=== PATIENT | female | born 1995 | race Caucasian/White ===

== ENCOUNTER 2016-08-26 17:21 | Emergency (ER) | payer SELFPAY ==
--- NOTE | 2016-08-26 17:29 | ER Document Report ---
ED Medical Screen (RME) - General Stated Complaint: SINUS CONGESTION Mode of Arrival: Ambulatory Information source: Patient Notes: c/o sinus congestion, pain and pressure with green rhinorrhea, headache and chest congestion with cough (green mucus) for the past week. Denies fever, chills, nausea, vomiting, or diarrhea. She has tried allergy medication, OTC decongestants which has not helped. Endorses sick contacts. I have greeted and performed a rapid initial assessment of this patient. A comprehensive ED assessment and evaluation of the patient, analysis of test results and completion of the medical decision making process will be conducted by additional ED providers. TRAVEL OUTSIDE OF THE [place] IN LAST 30 DAYS: No - Related Data Allergies/Adverse Reactions: amoxicillin [Amoxicillin] Allergy (Severe, Verified 08/26/16 17:28) Swelling, Hives Past Medical History - Past Medical History Cardiac Medical History: Denies: Hx Coronary Artery Disease, Hx Heart Attack, Hx Hypertension Pulmonary Medical History: Denies: Hx Asthma, Hx Bronchitis, Hx COPD, Hx Pneumonia Neurological Medical History: Denies: Hx Cerebrovascular Accident, Hx Seizures GI Medical History: Musculoskeltal Medical History: Denies Hx Arthritis, Reports Hx Musculoskeletal Trauma Infectious Medical History: Past Surgical History: Reports: Hx Cholecystectomy, Hx Hysterectomy. Denies: Hx Pacemaker - Immunizations Hx Diphtheria, Pertussis, Tetanus Vaccination: No - unsure Physical Exam - Vital signs Vitals: Temp Pulse Resp BP Pulse Ox 98.1 F 88 16 141/91 H 100 08/26/16 17:28 08/26/16 17:28 08/26/16 17:28 08/26/16 17:28 08/26/16 17:28 Course - Vital Signs Vital signs: Temp Pulse Resp BP Pulse Ox 98.1 F 88 16 141/91 H 100 08/26/16 17:28 08/26/16 17:28 08/26/16 17:28 08/26/16 17:28 08/26/16 17:28
--- NOTE | 2016-08-26 18:42 | ER Document Report ---
HPI - HPI Patient complains to provider of: sinus drainage and pressure Onset: Other - 1 week Onset/Duration: Gradual Pain Level: Denies Context: 21-year-old female with upper respiratory infection for over a week with sinus pressure and congestion. Dark green nasal discharge when she blows her nose especially at night. She has post nasal drip with occasional cough. She is a smoker. No fever. Associated Symptoms: None Exacerbated by: Denies Relieved by: Denies Similar symptoms previously: No Recently seen / treated by doctor: No - ROS ROS below otherwise negative: Yes Systems Reviewed and Negative: Yes All other systems reviewed and negative - REPRODUCTIVE LMP: 08/18/16 Reproductive: DENIES: : - DERM Skin Color: Normal Past Medical History - General Information source: Patient - Social History Smoking Status: Current Every Day Smoker Chew tobacco use (# tins/day): No Frequency of alcohol use: None Drug Abuse: None Family History: Reviewed & Not Pertinent Patient has suicidal ideation: No Patient has homicidal ideation: No - Past Medical History Cardiac Medical History: Pulmonary Medical History: Renal/ Medical History: Denies: Hx Peritoneal Dialysis GI Medical History: Musculoskeltal Medical History: Reports Hx Musculoskeletal Trauma Infectious Medical History: Past Surgical History: Reports: Hx Cholecystectomy, Hx Hysterectomy - Immunizations Hx Diphtheria, Pertussis, Tetanus Vaccination: No - unsure Vertical Provider Document - CONSTITUTIONAL Agree With Documented VS: Yes Exam Limitations: No Limitations - INFECTION CONTROL TRAVEL OUTSIDE OF THE [place] IN LAST 30 DAYS: No - HEENT HEENT: Normocephalic, Pharyngeal Erythema. negative: Conjuctival Injection, Tympanic Membrane Red, Tympanic Membrane Bulging Notes: Boggy naris - NECK Neck: Supple. negative: Lymphadenopathy-Left, Lymphadenopathy-Right - RESPIRATORY Respiratory: Breath Sounds Normal, No Respiratory Distress O2 Sat by Pulse Oximetry: 100 - CARDIOVASCULAR Cardiovascular: Regular Rate, Regular Rhythm - GI/ABDOMEN Gastrointestinal: Abdomen Soft, Abdomen Non-Tender, No Organomegaly - MUSCULOSKELETAL/EXTREMETIES Musculoskeletal/Extremeties: MAAME DUNNE - NEURO Level of Consciousness: Awake, Alert - DERM Integumentary: Warm, Dry, No Rash Course - Vital Signs Vital signs: Temp Pulse Resp BP Pulse Ox 98.1 F 88 16 141/91 H 100 08/26/16 17:28 08/26/16 17:28 08/26/16 17:28 08/26/16 17:28 08/26/16 17:28 Discharge - Discharge Clinical Impression: Sinusitis Qualifiers: Sinusitis location: unspecified location Chronicity: acute Recurrence: non- recurrent Qualified Code(s): J01.90 - Acute sinusitis, unspecified Condition: Good Disposition: HOME, SELF-CARE Instructions: Sinusitis ([facility]), Azithromycin ([facility]), Stop Smoking ([facility]) Additional Instructions: saline nasal spray four times per day stop smoking to er if worse see your provider if persists warm compress of the sinus Prescriptions: Azithromycin [Zithromax] 250 mg PO DAILY #6 tablet Forms: Return to Work
[2016-08-26 19:15] VITALS: BP 122/77
== END 2016-08-26 19:12 | disposition home or self-care (01) ==
LOC: ER 17:21
DX: J01.90 Acute sinusitis, unspecified (principal); J34.89 Other specified disorders of nose and nasal sinuses; R09.81 Nasal congestion; R05 Cough; R09.82 Postnasal drip; F17.200 Nicotine dependence, unspecified, uncomplicated
CPT/HCPCS: 99283

== ENCOUNTER 2017-01-07 11:06 | Emergency (ER) | payer BC, MEDICAID ==
--- NOTE | 2017-01-07 11:39 | ER Document Report ---
HPI - HPI Pain Level: 3 Notes: Patient is a 21-year-old female presents the ED complaining of urinary burning, urgency, frequency 1 day. Patient states that she also developed hematuria this morning and pain with urination. Patient states that she does not drink enough water as it is, but is still able to eat and drink without any problems. Patient states that she does have a history of UTIs and that the symptoms are similar to the past. Patient does note some lower abdominal pressure but no sharp pain. Denies any back pain. She has not had any medications for her symptoms. Patient states she is allergic to amoxicillin, develops rash. She does not take any medications daily. No other significant past medical history. No recent illness, travel, sick contacts. Patient does smoke but does not do any other IV drugs. Denies any urethral or vaginal discharge. Denies any headache, fever, URI, sore throat, cough, wheeze, shortness of breath , chest pain, palpitations, syncope, nausea/vomiting/diarrhea, urinary retention , joint pains, or rash. - ROS Notes: REVIEW OF SYSTEMS: CONSTITUTIONAL : Denies fever, chills, or sweats. Denies recent illness. EENT: Denies eye, ear, throat, or mouth pain or symptoms. Denies nasal or sinus congestion or discharge. Denies throat, tongue, or mouth swelling or difficulty swallowing. CARDIOVASCULAR: Denies chest pain. Denies palpitations or racing or irregular heart beat. Denies ankle edema. RESPIRATORY: Denies cough, cold, or chest congestion. Denies shortness of breath, difficulty breathing, or wheezing. GASTROINTESTINAL: Denies abdominal pain or distention. Denies nausea, vomiting , or diarrhea. Denies blood in vomitus, stools, or per rectum. Denies black, tarry stools. Denies constipation. GENITOURINARY: See HPI MUSCULOSKELETAL: Denies back or neck pain or stiffness. Denies joint pain or swelling. SKIN: Denies rash, lesions or sores. ALL OTHER SYSTEMS REVIEWED AND NEGATIVE. Dictation was performed using [employer] voice recognition software - REPRODUCTIVE Reproductive: DENIES: : - DERM Skin Color: Normal Past Medical History - Social History Smoking Status: Unknown if Ever Smoked Family History: Reviewed & Not Pertinent Patient has suicidal ideation: No Patient has homicidal ideation: No - Past Medical History Cardiac Medical History: Denies: Hx Coronary Artery Disease, Hx Heart Attack, Hx Hypertension Pulmonary Medical History: Denies: Hx Asthma, Hx Bronchitis, Hx COPD, Hx Pneumonia Neurological Medical History: Denies: Hx Cerebrovascular Accident, Hx Seizures Renal/ Medical History: Denies: Hx Peritoneal Dialysis GI Medical History: Musculoskeltal Medical History: Denies Hx Arthritis, Reports Hx Musculoskeletal Trauma Infectious Medical History: Past Surgical History: Reports: Hx Cholecystectomy, Hx Hysterectomy. Denies: Hx Pacemaker - Immunizations Hx Diphtheria, Pertussis, Tetanus Vaccination: No - unsure Vertical Provider Document - CONSTITUTIONAL Agree With Documented VS: Yes Notes: PHYSICAL EXAMINATION: GENERAL: Well-appearing, well-nourished and in no acute distress. NECK: Normal range of motion, supple without lymphadenopathy LUNGS: Breath sounds clear to auscultation bilaterally and equal. No wheezes rales or rhonchi. HEART: Regular rate and rhythm without murmurs, rubs, gallops. ABDOMEN: Soft, nontender, nondistended abdomen. No guarding, no rebound. No masses appreciated. Normal bowel sounds present. No CVA tenderness bilaterally. Female : No inguinal adenopathy. External genitalia without erythema, lesions , or masses. Vaginal mucosa pink. Cervix parous, pink, and without discharge. Uterus is smooth. No adnexal tenderness. No CMT. PSYCH: Normal mood, normal affect. SKIN: Warm, Dry, normal turgor, no rashes or lesions noted. - INFECTION CONTROL TRAVEL OUTSIDE OF THE [place] IN LAST 30 DAYS: No - RESPIRATORY O2 Sat by Pulse Oximetry: 99 Course - Re-evaluation Re-evalutation: 01/07/17 15:45 Patient is an afebrile, well-hydrated, 21-year-old female presents the ED with dysuria, suspect UTI based on H&P today. Pelvic was performed along with wet mount and Chalm/Popeye to further assess as wbc clumps were noted in the urine and pt noted to have unprotected sex since having her IUD placement 6mos ago. Wet mount shows some bacteria, most likely bacterial vaginosis. Chlam/Popeye pending-- will call pt with results. 1g zithromax and 250mg IM rocephin given as precaution today. Urinalysis shows bacteria byproduct with blood cells. Urine culture pending. I will cover her with Keflex twice a day for 7 days and flagyl 500mg PO BID x7 days. Conservative measures otherwise for symptoms. Recheck with your PCM/establish with a PCM this week. Consider consult with urology. Return to the ED with any worsening/concerning symptoms otherwise as reviewed in discharge. Patient is in agreement. 01/07/17 19:47 Chlam/popeye negative. called patient. no new concerns. - Vital Signs Vital signs: Temp Pulse Resp BP Pulse Ox 98.1 F 55 L 14 126/74 H 99 01/07/17 11:14 01/07/17 11:14 01/07/17 11:14 01/07/17 11:14 01/07/17 11:14 Procedures - Pelvic Exam Pelvic exam Time completed: 13:40 Cultures obtained: Yes Wet prep obtained: Yes Herpes culture obtained: No Foreign body removed: No Bimanual exam performed: Yes - negative Witnessed by: Nurse: Kim Discharge - Discharge Clinical Impression: Dysuria, Bacterial vaginosis Condition: Stable Disposition: HOME, SELF-CARE Instructions: Urinary Tract Infection ([facility]) Additional Instructions: Push fluids (i.e. water, cranberry juice) Proper hygenic technique Keep the skin clean Take medications as directed Practice safe sex and use condoms Tylenol/ibuprofen as needed May use over the counter AZO for burning with urination Take medications as directed F/u/establish with your PCM this week for a recheck Consider consult with a Urologist for ongoing/worsening symptoms. Return to the ED with any development of fever, headache, worsening pain, increased blood in the urine, flank pain, abdominal pain, n/v, diarrhea, CP, shortness of breath, trouble breathing, or any other worsening/concerning symptoms otherwise as needed. Prescriptions: Cephalexin Monohydrate [Keflex 500 mg Capsule] 500 mg PO BID #14 capsule Metronidazole [Flagyl 500 mg Tablet] 500 mg PO BID #14 tablet Referrals: [facility] [Provider Group] - Follow up as needed [facility] [Provider Group] - Follow up as needed [facility] [Provider Group] - Follow up as needed
[2017-01-07 13:09] LABS: APPEARANCE,URINE CLOUDY; BILIRUBIN,URINE NEGATIVE (NEGATIVE); GLUCOSE, URINE NEGATIVE (NEGATIVE); KETONES,URINE NEGATIVE (NEGATIVE); LEUKOCYTE ESTERASE,URINE MODERATE (NEGATIVE); NITRITE,URINE NEGATIVE (NEGATIVE); PROTEIN,URINE 30 mg/dL (NEGATIVE); UROBILINOGEN,URINE NEGATIVE mg/dL (<2.0)
[2017-01-07] MEDS ORDERED: AZITHROMYCIN 250 MG TABLET PO ONE (15:38)
[2017-01-07] MEDS ORDERED: CEFTRIAXONE INJ 1000 MG VIAL IM ONE (15:38)
[2017-01-07 16:15] VITALS: BP 125/76
[2017-01-07 17:35] LABS: CHLAM PCR NOT DETECTED (NOT DETECT)
== END 2017-01-07 16:12 | disposition home or self-care (01) ==
LOC: ER 11:06
DX: R30.0 Dysuria (principal); N76.0 Acute vaginitis; B96.89 Other specified bacterial agents as the cause of diseases classified elsewhere; Z90.49 Acquired absence of other specified parts of digestive tract; Z90.710 Acquired absence of both cervix and uterus
CPT/HCPCS: 99283; 96372; 87086; 87210; 87088; 81001; 87186; 87491; 87591; J0696

== ENCOUNTER 2017-03-10 11:27 | Emergency (ER) | payer BC, MEDICAID ==
--- NOTE | 2017-03-10 11:46 | ER Document Report ---
ED General - General Stated Complaint: RIGHT FOOT INJURY Time Seen by Provider: 03/10/17 11:45 Mode of Arrival: Ambulatory Information source: Patient Notes: Patient is a 22 year old female who presents with right foot pain and swelling that started yesterday morning. She states she was running from a lizard on her porch and she kicked the edge of her porch. She reports pain is intermittently dull and sharp. She is unable to bear weight on right foot. She has tried tylenol, last dose this morning, which is not providing relief. Denies any numbness, tingling, erythema, ecchymosis or warmth. TRAVEL OUTSIDE OF THE [place] IN LAST 30 DAYS: No - Related Data Allergies/Adverse Reactions: amoxicillin [Amoxicillin] Allergy (Severe, Verified 08/26/16 17:28) Swelling, Hives Past Medical History - General Information source: Patient - Social History Smoking Status: Unknown if Ever Smoked Family History: Reviewed & Not Pertinent - Past Medical History Cardiac Medical History: Denies: Hx Coronary Artery Disease, Hx Heart Attack, Hx Hypertension Pulmonary Medical History: Denies: Hx Asthma, Hx Bronchitis, Hx COPD, Hx Pneumonia Neurological Medical History: Denies: Hx Cerebrovascular Accident, Hx Seizures Renal/ Medical History: Denies: Hx Peritoneal Dialysis GI Medical History: Musculoskeltal Medical History: Denies Hx Arthritis, Reports Hx Musculoskeletal Trauma Infectious Medical History: Past Surgical History: Reports: Hx Cholecystectomy, Hx Hysterectomy. Denies: Hx Pacemaker - Immunizations Hx Diphtheria, Pertussis, Tetanus Vaccination: No - unsure Review of Systems - Review of Systems Constitutional: No symptoms reported EENT: No symptoms reported Cardiovascular: No symptoms reported Respiratory: No symptoms reported Gastrointestinal: No symptoms reported Genitourinary: No symptoms reported Female Genitourinary: No symptoms reported Musculoskeletal: See HPI Skin: No symptoms reported Hematologic/Lymphatic: No symptoms reported Neurological/Psychological: No symptoms reported Physical Exam - Vital signs Vitals: Temp Pulse Resp BP Pulse Ox 98.4 F 107 H 16 113/79 99 03/10/17 11:46 03/10/17 11:46 03/10/17 11:46 03/10/17 11:46 03/10/17 11:46 Interpretation: Tachycardic - Notes Notes: PHYSICAL EXAM: CONSTITUTIONAL: Alert and oriented, well-appearing and in no acute distress. HENT: Normocephalic, atraumatic. Moist mucous membranes. EYES: Pupils equal round and reactive to light, EOM intact. Sclera anicteric, conjunctiva are normal. No entrapment. HEART: Regular rate and rhythm without murmurs. LUNGS: CTAB and equal. No wheezes, rales or rhonchi. BACK: nontender, no paraspinous spasm, 5+/5 strengths, DTRs 2+, SLR -. EXTREMITIES: right foot - tender to palpation along medial plantar surface with swelling and ecchymosis, normal ROM of ankle and toes, no pitting edema. No cyanosis. Cap Refill <3 seconds. distal pulses intact. NEURO: Cranial nerves grossly intact. Normal sensory/motor exams. PSYCH: Normal mood, normal affect. SKIN: Warm and dry. Normal turgor. No rashes or lesions noted. Course - Re-evaluation Re-evalutation: 03/10/17 11:55 Patient seen and examined. Neurovascular intact. Normal ROM. Will get xray and give motrin for pain. 03/10/17 13:41 Reviewed imaging studies - no fractures noted. Offered post-op shoe for comfort , patient refused. Will give script for pain medication. Discussed supportive instructions. At this time, will discharge with return precautions and follow-up recommendations. Verbal discharge instructions given at the bedside and opportunity for questions given. Medication warnings reviewed. Patient is in agreement with this plan and has verbalized understanding of return precautions and the need for primary care follow-up in the next 24-72 hours. - Vital Signs Vital signs: Temp Pulse Resp BP Pulse Ox 98.4 F 107 H 16 113/79 99 03/10/17 11:46 03/10/17 11:46 03/10/17 11:46 03/10/17 11:46 03/10/17 11:46 - Diagnostic Test Radiology reviewed: Image reviewed, Reports reviewed Discharge - Discharge Clinical Impression: Contusion of right foot, initial encounter Condition: Stable Disposition: HOME, SELF-CARE Additional Instructions: Contusion Your injury has resulted in a contusion -- a crushing of the deep tissues. No injury to important structures was detected during the physician's exam. Contusions vary in the amount of pain they cause, and in the length of time required for healing. Typically, the area will become bruised, and will remain painful to touch for two or three weeks. However, most patients are back to working and playing within a few days. After the initial period of rest and cold-packs, your symptoms (together with the doctor's recommendations) will determine how rapidly you can get back to full activity. Usually this means "do what feels okay, but don't do things that hurt." If re-examination was recommended, it's important to follow up as instructed. Call the doctor or return any time if pain increases, if swelling becomes severe, if you develop numbness or weakness in an injured extremity, or if any other alarming symptoms occur. Anti-Inflammatory Medication You have received a prescription for an antiinflammatory agent. This is an excellent, safe drug for pain control. In addition, it has potent antiinflammatory effects which are beneficial, especially in the treatment of injuries, arthritis, or tendonitis. It's best to take this medicine with food. Persons with ulcer disease or allergy to aspirin should notify their physician of this before taking this drug. Take the medication exactly as prescribed. Don't take additional doses unless instructed to do so by your doctor. If you develop wheezing, shortness of breath, hives, faintness, stomach pain, vomiting, or dark black stools, return for re-evaluation at once. Follow up with the provider of your choice in one to two weeks. Prescriptions: Ketorolac Tromethamine [Toradol 10 mg Tablet] 10 mg PO Q8HP PRN #20 tablet PRN Reason:
[2017-03-10] MEDS ORDERED: IBUPROFEN 600 MG TABLET PO ONE (11:51)
--- NOTE | 2017-03-10 13:23 | RADIOLOGY REPORT (SQ) ---
EXAM DESCRIPTION: FOOT RIGHT COMPLETE COMPLETED DATE/TIME: 03/10/2017 12:19 pm REASON FOR STUDY: foot pain COMPARISON: None. NUMBER OF VIEWS: Three views. TECHNIQUE: AP, lateral and oblique radiographic images acquired of the right foot. LIMITATIONS: None. FINDINGS: MINERALIZATION: Normal. BONES: No acute fracture or dislocation. No worrisome bone lesions. JOINTS: No effusions. SOFT TISSUES: No soft tissue swelling. No foreign body. OTHER: No other significant finding. IMPRESSION: NEGATIVE STUDY OF THE RIGHT FOOT. NO RADIOGRAPHIC EVIDENCE OF ACUTE INJURY. TECHNICAL DOCUMENTATION: JOB ID: [id number] [employer]- All Rights Reserved
[2017-03-10 14:00] VITALS: BP 120/75
== END 2017-03-10 14:01 | disposition home or self-care (01) ==
LOC: ER 11:27
DX: S90.31XA Contusion of right foot, initial encounter (principal); W22.09XA Striking against other stationary object, initial encounter; Y92.007 Garden or yard of unspecified non-institutional (private) residence as the place of occurrence of the external cause; Z88.0 Allergy status to penicillin; Z90.49 Acquired absence of other specified parts of digestive tract; Z90.710 Acquired absence of both cervix and uterus
CPT/HCPCS: 99283; 73630; J3490

== ENCOUNTER 2017-03-21 10:30 | Emergency (ER) | payer MEDICAID ==
[2017-03-21 10:34] VITALS: BP 143/73
--- NOTE | 2017-03-21 11:13 | ER Document Report ---
HPI - HPI Patient complains to provider of: Dental pain Onset: Other - 3 days Onset/Duration: Persistent Quality of pain: Sharp Pain Level: 5 Context: Patient presents complaining of dental pain to left upper and lower jaw. Patient states she has had a root canal but was unable to afford the crown and was told that her tooth would eventually start to give her problems. Patient denies any fever or facial swelling. Patient states she has been taking Tylenol without improvement of her symptoms. Associated Symptoms: Other - Dental pain. denies: Fever Exacerbated by: Denies Relieved by: Denies Similar symptoms previously: Yes Recently seen / treated by doctor: No - ROS ROS below otherwise negative: Yes Systems Reviewed and Negative: Yes All other systems reviewed and negative - CONSTITUTIONAL Constitutional: DENIES: Fever - EENT Notes: Dental pain - RESPIRATORY Respiratory: DENIES: Coughing - GASTROINTESTINAL Gastrointestinal: DENIES: Nausea - REPRODUCTIVE Reproductive: DENIES: : - DERM Skin Color: Normal Skin Problems: None Past Medical History - General Information source: Patient - Social History Smoking Status: Current Every Day Smoker Frequency of alcohol use: None Drug Abuse: None Occupation: [email or web address] Family History: Reviewed & Not Pertinent - Past Medical History Cardiac Medical History: Denies: Hx Coronary Artery Disease, Hx Heart Attack, Hx Hypertension Pulmonary Medical History: Denies: Hx Asthma, Hx Bronchitis, Hx COPD, Hx Pneumonia Neurological Medical History: Denies: Hx Cerebrovascular Accident, Hx Seizures Renal/ Medical History: Denies: Hx Peritoneal Dialysis GI Medical History: Musculoskeltal Medical History: Denies Hx Arthritis, Reports Hx Musculoskeletal Trauma Psychiatric Medical History: Reports: Hx Anxiety, Hx Depression Infectious Medical History: Past Surgical History: Reports: Hx Cholecystectomy, Hx Hysterectomy. Denies: Hx Pacemaker - Immunizations Hx Diphtheria, Pertussis, Tetanus Vaccination: No - unsure Vertical Provider Document - CONSTITUTIONAL Agree With Documented VS: Yes Exam Limitations: No Limitations General Appearance: WD/WN, No Apparent Distress - INFECTION CONTROL TRAVEL OUTSIDE OF THE [place] IN LAST 30 DAYS: No - HEENT HEENT: Atraumatic, Normocephalic. negative: Pharyngeal Exudate, Pharyngeal Tenderness, Pharyngeal Erythema, Tympanic Membrane Red, Tympanic Membrane Bulging Mouth Diagram: 1 - tender, erupting 3rd molar 2 - tender, dental caries, no gingival abscess - NECK Neck: Normal Inspection, Supple. negative: Lymphadenopathy-Left, Lymphadenopathy-Right - RESPIRATORY Respiratory: Breath Sounds Normal, No Respiratory Distress O2 Sat by Pulse Oximetry: 100 - CARDIOVASCULAR Cardiovascular: Regular Rate, Regular Rhythm, No Murmur - MUSCULOSKELETAL/EXTREMETIES Musculoskeletal/Extremeties: MAEW - NEURO Level of Consciousness: Awake, Alert, Appropriate Motor/Sensory: No Motor Deficit - DERM Integumentary: Warm, Dry Course - Re-evaluation Re-evalutation: 03/21/17 11:12 The patient has been informed that they may have pre-hypertension or hypertension based on a blood pressure reading in the emergency department. I recommend that patient call the primary care provider listed on their discharge instructions or a physician of their choice by this week to arrange follow-up for further evaluation of possible pre-hypertension or hypertension. - Vital Signs Vital signs: Temp Pulse Resp BP Pulse Ox 98.1 F 52 L 20 143/73 H 100 03/21/17 10:32 03/21/17 10:32 03/21/17 10:32 03/21/17 10:32 03/21/17 10:32 Discharge - Discharge Clinical Impression: Toothache, Elevated blood pressure reading Condition: Stable Disposition: HOME, SELF-CARE Instructions: Clindamycin ([facility]), Dentist, Oral Narcotic Medication ([facility]), Toothache ([facility]) Additional Instructions: Return immediately for any new or worsening symptoms Followup with your dental care provider, call tomorrow to make a followup appointment Prescriptions: Acetaminophen with Codeine [Acetaminophen-Cod #3 Tablet] 1 each PO Q6 PRN #12 tablet PRN Reason: Clindamycin HCl [Cleocin 300 mg Capsule] 300 mg PO TID #21 capsule Naproxen [Naprosyn 250 Nmg Tablet] 1 tab PO BID #14 tablet Forms: Elevated Blood Pressure, Return to Work Referrals: [facility] [Provider Group] - Follow up tomorrow
== END 2017-03-21 11:20 | disposition home or self-care (01) ==
LOC: ER 10:30
DX: K08.9 Disorder of teeth and supporting structures, unspecified (principal); R03.0 Elevated blood-pressure reading, without diagnosis of hypertension; F17.200 Nicotine dependence, unspecified, uncomplicated; Z90.49 Acquired absence of other specified parts of digestive tract; Z90.710 Acquired absence of both cervix and uterus
CPT/HCPCS: 99282

== ENCOUNTER 2017-11-16 22:42 | Emergency (ER) | payer SELFPAY ==
[2017-11-17] MEDS ORDERED: PHENAZOPYRIDINE HCL 200 MG TABLET PO ONE (01:33)
--- NOTE | 2017-11-17 01:34 | ER Document Report ---
HPI - HPI Pain Level: 3 Context: Patient is a 22-year-old female comes emergency department for chief complaint of worsening painful urination and frequency for the past 3 days. She states that she has also noticed some blood in her urine. She denies flank pain, nausea vomiting, fever or chills. LMP within the past month. She denies any abnormal discharge or specific abdominal pain unless she is urinating. - REPRODUCTIVE Reproductive: DENIES: : - DERM Skin Color: Normal, Adell Past Medical History - General Information source: Patient - Social History Smoking Status: Current Every Day Smoker Chew tobacco use (# tins/day): No Frequency of alcohol use: None Drug Abuse: None Lives with: Family Family History: Reviewed & Not Pertinent Patient has suicidal ideation: No Patient has homicidal ideation: No - Past Medical History Cardiac Medical History: Denies: Hx Coronary Artery Disease, Hx Heart Attack, Hx Hypertension Pulmonary Medical History: Denies: Hx Asthma, Hx Bronchitis, Hx COPD, Hx Pneumonia Neurological Medical History: Denies: Hx Cerebrovascular Accident, Hx Seizures Renal/ Medical History: Denies: Hx Peritoneal Dialysis GI Medical History: Musculoskeltal Medical History: Denies Hx Arthritis, Reports Hx Musculoskeletal Trauma Psychiatric Medical History: Reports: Hx Anxiety, Hx Depression Infectious Medical History: Past Surgical History: Reports: Hx Cholecystectomy. Denies: Hx Pacemaker - Immunizations Hx Diphtheria, Pertussis, Tetanus Vaccination: No - unsure Vertical Provider Document - CONSTITUTIONAL General Appearance: WD/WN, No Apparent Distress - INFECTION CONTROL TRAVEL OUTSIDE OF THE [place] IN LAST 30 DAYS: No - HEENT HEENT: Atraumatic, Normal ENT Exam, Normocephalic - NECK Neck: Normal Inspection - RESPIRATORY Respiratory: Breath Sounds Normal, No Respiratory Distress - CARDIOVASCULAR Cardiovascular: Regular Rate, Regular Rhythm - GI/ABDOMEN Gastrointestinal: Abdomen Soft. negative: Abdomen Non-Tender - Tenderness over the suprapubic area, otherwise unremarkable abdominal and pelvic examination, no guarding, no rigidity - BACK Back: Normal Inspection. negative: CVA Tenderness-Right, CVA Tenderness-Left - MUSCULOSKELETAL/EXTREMETIES Musculoskeletal/Extremeties: MAEW, FROM, Non-Tender - NEURO Level of Consciousness: Awake, Alert, Appropriate - DERM Integumentary: Warm, Dry, No Rash Course - Re-evaluation Re-evalutation: Patient with suprapubic tenderness, dysuria, obvious urinary tract infection. No CVA tenderness, nausea or vomiting, fever or chills. Consistent with cystitis. Low suspicion of pyelonephritis or infected ureteral stone. Beginning antibiotics, discussed follow-up and return precautions, patient states understanding and agreement. - Vital Signs Vital signs: Temp Pulse Resp BP Pulse Ox 98.9 F 80 18 125/78 99 11/16/17 22:50 11/16/17 22:50 11/16/17 22:50 11/16/17 22:50 11/16/17 22:50 Discharge - Discharge Clinical Impression: Dysuria Urinary tract infection Qualifiers: Urinary tract infection type: acute cystitis Hematuria presence: with hematuria Qualified Code(s): N30.01 - Acute cystitis with hematuria Disposition: HOME, SELF-CARE Prescriptions: Cephalexin Monohydrate [Keflex 500 mg Capsule] 500 mg PO QID #20 capsule Phenazopyridine HCl [Pyridium 100 Mg Tablet] 200 mg PO TID PRN #6 tablet PRN Reason: Forms: Return to Work
[2017-11-17 02:01] LABS: APPEARANCE,URINE CLOUDY; BILIRUBIN,URINE NEGATIVE (NEGATIVE); GLUCOSE, URINE NEGATIVE (NEGATIVE); KETONES,URINE NEGATIVE (NEGATIVE); LEUKOCYTE ESTERASE,URINE LARGE (NEGATIVE); NITRITE,URINE POSITIVE (NEGATIVE); PROTEIN,URINE 30 mg/dL (NEGATIVE); URINE SPECIFIC GRAVITY 1.012
[2017-11-17 02:02] LABS: COLOR,URINE YELLOW
[2017-11-17 02:06] VITALS: BP 112/68
[2017-11-17] MEDS ORDERED: CEPHALEXIN 500 MG CAPSULE PO ONE (02:10)
== END 2017-11-17 02:59 | disposition home or self-care (01) ==
LOC: ER 22:42
DX: N30.01 Acute cystitis with hematuria (principal); R30.0 Dysuria; R35.0 Frequency of micturition
CPT/HCPCS: 99283; 81025; 81001; J3490